=== PATIENT | female | born 1965 | race Caucasian/White ===

== ENCOUNTER 2020-12-08 11:09 | Emergency (ER) | payer BC, OTHER ==
[~2020-12-08 11:09] MED LIST: AMBIEN5 MG PO; CLARITIN10 MG PO; CYCLOBENZAPRINE10 MG PO; CYCLOBENZAPRINE5 MG PO; ETODOLAC300 MG PO; FLOVENT 220.1 GM/INH INH; GABAPENTIN800 MG PO; IBUPROFEN800 MG PO; LOPRESSOR 25 MG25 MG PO; MACRODANTIN100 MG PO; MICROZIDE12.5 MG PO; MOBIC7.5 MG PO; NASONEX17 GM; NORCO 10-325 T1 EACH PO; OMNICEF 300 MG300 MG PO; PROAIR DIGIHAL90 MCG INH; PROZAC40 MG PO; PYRIDIUM200 MG PO; ZOFRAN 4 MG TAB4 MG PO; ZUBSOLV 5.7-1.1 EACH SL
[2020-12-08] MEDS ORDERED: MEDROL4 MG PO (14:09)
[2020-12-08] MEDS ORDERED: CYCLOBENZAPRINE10 MG PO (14:09)
== END 2020-12-08 14:18 | disposition home or self-care (01) ==
LOC: ER1 11:09
DX: M53.3 Sacrococcygeal disorders, not elsewhere classified (principal); I10 Essential (primary) hypertension; Z88.1 Allergy status to other antibiotic agents; Z79.899 Other long term (current) drug therapy
CPT/HCPCS: 96372; 99283; J1100; J1885

== ENCOUNTER 2021-06-24 14:34 | Emergency (ER) | payer BC, OTHER ==
[~2021-06-24 14:34] MED LIST changes: +MEDROL4 MG PO
[2021-06-24 15:21] LABS: RED BLOOD COUNT 4.11 M/UL (4.00-5.10); WHITE BLOOD COUNT 5.1 K/UL (4.5-11.0)
[2021-06-24 15:47] LABS: BUN/CREATININE RATIO 13 (0-10)
[2021-06-24] MEDS ORDERED: ONDANSETRON ODT4 MG SL (20:00)
[2021-06-24] MEDS ORDERED: CATAPRES 0.1MG0.1 MG PO (20:00)
[2021-06-24] MEDS ORDERED: IBUPROFEN800 MG PO (20:00)
== END 2021-06-24 20:45 | disposition home or self-care (01) ==
LOC: ER1 14:34
PROVIDERS: Physician Assistant
DX: I10 Essential (primary) hypertension (principal); R51.9 Headache, unspecified; E07.9 Disorder of thyroid, unspecified; Z88.8 Allergy status to other drugs, medicaments and biological substances
CPT/HCPCS: 36415; 70450; 71045; 80053; 82550; 82553; 83874; 84484; 85025; 93005; 99284

== ENCOUNTER 2021-11-29 19:22 | Emergency (ER) | payer BC, OTHER ==
[~2021-11-29 19:22] MED LIST changes: +CATAPRES 0.1MG0.1 MG PO; +ONDANSETRON ODT4 MG SL
[2021-11-29 22:26] LABS: HEMOGLOBIN 12.8 gm/dl (12.3-15.3); WHITE BLOOD COUNT 5.5 K/UL (4.5-11.0)
[2021-11-29 22:49] LABS: BUN/CREATININE RATIO 14 (0-10)
[2021-11-29] MEDS ORDERED: POTASSIUM CHLO20 ME1 PO (23:31)
[2021-11-29] MEDS ORDERED: LASIX20 MG PO (23:31)
[2021-11-30] MEDS ORDERED: LASIX20 MG PO (00:14)
[2021-11-30] MEDS ORDERED: POTASSIUM CHLO20 ME1 PO (00:14)
== END 2021-11-30 | disposition home or self-care (01) ==
LOC: ER1 19:22
PROVIDERS: Student in an Organized Health Care Education/Training Program
DX: M79.89 Other specified soft tissue disorders (principal); R60.0 Localized edema; E11.9 Type 2 diabetes mellitus without complications; I10 Essential (primary) hypertension; Z88.1 Allergy status to other antibiotic agents
CPT/HCPCS: 73502; 73552; 80053; 82550; 82553; 83880; 84484; 85025; 85379; 99283

== ENCOUNTER → 2021-11-30 | Outpatient (CLI) | payer OTHER ==
[~2021-11-30] MED LIST changes: +LASIX20 MG PO; +POTASSIUM CHLO20 ME1 PO
== END ==
LOC: US 09:41
DX: R22.42 Localized swelling, mass and lump, left lower limb (principal); M79.605 Pain in left leg
CPT/HCPCS: 93970

== ENCOUNTER → 2022-03-04 | Outpatient (CLI) | payer OTHER, BC | LOC: KOH-I 13:52 | DX: M51.16 Intervertebral disc disorders with radiculopathy, lumbar region (principal); M51.17 Intervertebral disc disorders with radiculopathy, lumbosacral region; M48.061 Spinal stenosis, lumbar region without neurogenic claudication | CPT/HCPCS: 72148 ==